=== PATIENT | female | born 2005 | race Caucasian/White ===

== ENCOUNTER → 2024-08-29 | Outpatient (CLI) | payer OTHER | END | disposition home or self-care (01) | LOC: US 07:25 | PROVIDERS: ATTEND Family Medicine | DX: K76.0 Fatty (change of) liver, not elsewhere classified (principal); R10.11 Right upper quadrant pain ==

== ENCOUNTER 2025-04-20 06:43 | Emergency (ER) | payer OTHER ==
[~2025-04-20] VITALS: Ht 170.2 cm; Wt 90.7 kg
[2025-04-20 07:35] LABS: BASO # 0.0 10*3/uL (0.0-0.1); BASO % 0.7 % (0.0-1.0); EOS # 0.2 10*3/uL (0.0-0.4); EOS % 4.0 % (1.0-4.0); MEAN CELL VOLUME 88.7 fl (81.0-99.0); MEAN CORPUSCULAR HGB 28.4 pg (27.0-31.0); MEAN PLATELET VOLUME 10.2 fl (9.6-12.3); MONO # 0.3 10*3/uL (0.1-1.0); MONO % 7.5 % (3.0-9.0); NEUT # 2.0 10*3/uL (2.3-7.9); NEUT % 46.6 % (47.0-73.0); NUCLEATED RED BLOOD CELL 0.0 % (0.0-0.0); NUCLEATED RED BLOOD CELL 0.0 10*3/uL (0.0-0.0); PLATELET COUNT AUTOMATED 198 10*3/uL (130-400); RED CELL DISTRI WIDTH 12.4 % (0-14.5)
[2025-04-20 08:15] LABS: BUN 10 mg/dl (9-23); SGPT/ALT 20 U/L (5-49)
[2025-04-20] MEDS ORDERED: Meclizine25 MG PO (08:53)
== END 2025-04-20 09:10 | disposition home or self-care (01) ==
LOC: ED 06:43
PROVIDERS: Student in an Organized Health Care Education/Training Program
DX: H81.399 Other peripheral vertigo, unspecified ear (principal); R10.11 Right upper quadrant pain; K82.9 Disease of gallbladder, unspecified